=== PATIENT | male | born 1960 | race Caucasian/White ===

== ENCOUNTER 2016-12-09 12:58 | Emergency (ER) | payer MEDICARE, MEDICAID ==
[~2016-12-09] VITALS: Ht 162.6 cm; Wt 55.0 kg
[~2016-12-09 12:58] MED LIST: ATOR80TA PO; BENZ1TAB PO; BUSP30TA PO; HALO10 PO; METO50TA PO; PRIL20CA PO; SERT100 PO
[2016-12-09 13:00] VITALS: BP 154/84; PULSE 123; RESP 14; TEMP 99; O2SAT 95
--- NOTE | 2016-12-09 14:36 | PD ---
HPI Chief Complaint: Skin Problem Time Seen by Provider: 14:36 Travel History International Travel<30 days: No Contact w/Intl Traveler<30days: No Traveled to known affect area: No History of Present Illness HPI 56-year-old male with history of paranoid schizophrenia, hypertension, recent hernia repair by Dr. Gomez at [facility], remote history of necrotizing fasciitis, presents to the emergency department for evaluation. Patient states that he has had rectal pain for the last 2-3 days. This morning he says he noticed a golf ball size painful lesion in front of his rectum. While sitting in triage, it began draining. He has been chilled uncertain of fevers. Decreased appetite. No chest pain or tightness. No recent illnesses. No other symptoms reported this time. PFSH Past Medical History Blood Disorders: No Depression: Yes Heart Rhythm Problems: No Cancer: No Cardiac Catheterization: No Cardiovascular Problems: Yes High Cholesterol: Yes Chest Pain: Yes (ADMITTED 2-3 YRS AGO FOR CP WORK UP) Congestive Heart Failure: No Diabetes: No Diminished Hearing: No Endocrine: No Genitourinary: No Headaches: Yes Hypertension: Yes Immune Disorder: No Musculoskeletal: No Psychiatric: Yes Reproductive: No Respiratory: No Myocardial Infarction: No Schizophrenia: Yes Past Surgical History Coronary Artery Bypass Graft: No Other Surgery: No Social History Alcohol Use: No Tobacco Use: Yes (1 PPD) Substance Use: No Allergies-Medications (Allergen,Severity, Reaction): Coded Allergies: *MDRO Multi-Drug Resistant Organism (Verified Allergy, Unknown, 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 Reported Meds & Prescriptions Reported Meds & Active Scripts Active Ibuprofen 600 Mg Tab 600 Mg PO Q6H PRN Bactrim DS (Sulfamethoxazole-Trimethoprim) 800-160 Mg Tab 1 Tab PO BID Reported Buspirone (Buspirone HCl) 30 Mg Tab 30 Mg PO TID Benztropine (Benztropine Mesylate) 2 Mg Tab 2 Mg PO HS Sertraline (Sertraline HCl) 100 Mg Tab 100 Mg PO DAILY Haloperidol 10 Mg Tab 10 Mg PO HS Omeprazole 20 Mg Tab 20 Mg PO DAILY Metoprolol Tartrate 50 Mg Tab 50 Mg PO DAILY Review of Systems Except as stated in HPI: all other systems reviewed are Neg Physical Exam Narrative GENERAL: Well-nourished male patient, in no acute distress SKIN: Warm and dry. There is a 3 cm x 2 cm opening lateral to the gluteal cleft posterior to the scrotum that is extremely tender. I am able to stick my finger inside of it. It is very tender. HEAD: Atraumatic. Normocephalic. EYES: Pupils equal and round. No scleral icterus. No injection or drainage. ENT: No nasal bleeding or discharge. Mucous membranes pink and moist. NECK: Trachea midline. No JVD. CARDIOVASCULAR: Tachycardic rate and rhythm. No murmur appreciated. RESPIRATORY: No accessory muscle use. Clear to auscultation. Breath sounds equal bilaterally. GASTROINTESTINAL: Abdomen soft, non-tender, nondistended. Abdominal binder in place. Hepatic and splenic margins not palpable. MUSCULOSKELETAL: No obvious deformities. No clubbing. No cyanosis. No edema. NEUROLOGICAL: Awake and alert. No obvious cranial nerve deficits. Motor grossly within normal limits. Normal speech. Data Data Last Documented VS Vital Signs Date Time Temp Pulse Resp B/P Pulse Ox O2 Delivery O2 Flow Rate FiO2 12/09/16 17:18 92 12/09/16 13:00 99.0 14 154/84 95 Room Air Orders Complete Blood Count With Diff (12/09/16 14:31) Comprehensive Metabolic Panel (12/09/16 14:31) Prothrombin Time / Inr (Pt) (12/09/16 14:31) Act Partial Throm Time (Ptt) (12/09/16 14:31) Electrocardiogram (12/09/16 14:31) Lactic Acid Sepsis Protocol (12/09/16 14:31) Ckmb (Isoenzyme) Profile (12/09/16 14:31) Troponin I (12/09/16 14:31) Blood Culture (12/09/16 14:31) Ct Abd/Pel W Iv Contrast(Rout) (12/09/16 17:27) Wound Culture And Gram Stain (12/09/16 17:35) Iv Access Insert/Monitor (12/09/16 17:35) Ketorolac Inj (Toradol Inj) (12/09/16 17:45) Clindamycin Inj (Cleocin Inj) (12/09/16 17:45) Iohexol 350 Inj (Omnipaque 350 Inj) (12/09/16 18:26) Labs Laboratory Tests Test 12/09/16 14:45 White Blood Count 17.2 TH/MM3 Red Blood Count 4.67 MIL/MM3 Hemoglobin 14.4 GM/DL Hematocrit 42.0 % Mean Corpuscular Volume 90.0 FL Mean Corpuscular Hemoglobin 30.7 PG Mean Corpuscular Hemoglobin 34.2 % Concent Red Cell Distribution Width 13.6 % Platelet Count 306 TH/MM3 Mean Platelet Volume 7.2 FL Neutrophils (%) (Auto) 80.1 % Lymphocytes (%) (Auto) 11.0 % Monocytes (%) (Auto) 7.8 % Eosinophils (%) (Auto) 0.5 % Basophils (%) (Auto) 0.6 % Neutrophils # (Auto) 13.8 TH/MM3 Lymphocytes # (Auto) 1.9 TH/MM3 Monocytes # (Auto) 1.3 TH/MM3 Eosinophils # (Auto) 0.1 TH/MM3 Basophils # (Auto) 0.1 TH/MM3 CBC Comment DIFF FINAL Differential Comment Prothrombin Time 10.3 SEC Prothromb Time International 0.9 RATIO Ratio Activated Partial 32.1 SEC Thromboplast Time Sodium Level 133 MEQ/L Potassium Level 3.5 MEQ/L Chloride Level 99 MEQ/L Carbon Dioxide Level 24.3 MEQ/L Anion Gap 10 MEQ/L Blood Urea Nitrogen 7 MG/DL Creatinine 0.86 MG/DL Estimat Glomerular Filtration 92 ML/MIN Rate Random Glucose 100 MG/DL Lactic Acid Level 1.9 mmol/L Calcium Level 9.3 MG/DL Total Bilirubin 0.5 MG/DL Aspartate Amino Transf 11 U/L (AST/SGOT) Alanine Aminotransferase 15 U/L (ALT/SGPT) Alkaline Phosphatase 101 U/L Total Creatine Kinase 60 U/L Troponin I LESS THAN 0.02 NG/ML Total Protein 8.4 GM/DL Albumin 3.9 GM/DL [facility] Medical Decision Making Medical Screen Exam Complete: Yes Emergency Medical Condition: Yes Medical Record Reviewed: Yes Differential Diagnosis Superficial abscess versus perirectal abscess versus necrotizing fasciitis versus fourniers gangrene Narrative Course 56-year-old male presents to emergency department for evaluation. Patient is tachycardic. He does have a draining wound on the left side lateral to the gluteal cleft posterior to the scrotum. Sepsis workup was initiated. I did not assess the patient's abdomen underneath his binder at this is difficult for him to remove and replaced. Once a medical bed because the elbow, patient will be transferred and care assumed by that provider. Scripts Ibuprofen 600 Mg [id number] Mg PO Q6H PRN (Pain/Inflammation) #40 TAB Prov:Doyle Davison MD 12/09/16 Sulfamethoxazole-Trimethoprim (Bactrim DS)800-160 Mg Tab1 Tab PO BID #20 TAB Prov:Doyle Davison MD 12/09/16 Condition: Stable Karen Barroso Dec 09, 2016 14:36
[2016-12-09 15:05] LABS: AUTOMATED NEUTROPHIL # 13.8 TH/MM3 (1.8-7.7); BASOPHIL # 0.1 TH/MM3 (0-0.2); BASOPHIL % 0.6 % (0.0-2.0); EOSINOPHIL # 0.1 TH/MM3 (0-0.4); EOSINOPHIL % 0.5 % (0.0-4.0); HEMO FLAGS DIFF FINAL; LYMPHOCYTE # 1.9 TH/MM3 (1.0-4.8); MEAN CORPUSCULAR HEMOGLOBIN 30.7 PG (27.0-34.0); MEAN CORPUSCULAR HGB CONC 34.2 % (32.0-36.0); MONO % 7.8 % (0.0-8.0); NEUT % 80.1 % (16.0-70.0); PLATELET COUNT 306 TH/MM3 (150-450); RED BLOOD COUNT 4.67 MIL/MM3 (4.50-5.90); RED CELL DISTRIBUTION WIDTH 13.6 % (11.6-17.2); WHITE BLOOD COUNT 17.2 TH/MM3 (4.0-11.0)
[2016-12-09 15:19] LABS: ALT (GPT) 15 U/L (12-78); ANION GAP 10 MEQ/L (5-15); AST (GOT) 11 U/L (15-37); BICARBONATE 24.3 MEQ/L (21.0-32.0); BLOOD UREA NITROGEN 7 MG/DL (7-18); CHLORIDE 99 MEQ/L (98-107); GLOMERULAR FILTRATION RATE 92 ML/MIN (>89); POTASSIUM 3.5 MEQ/L (3.5-5.1); SODIUM (NA) 133 MEQ/L (136-145)
[2016-12-09 15:23] LABS: ALKALINE PHOSPHATASE 101 U/L (45-117); TOTAL BILIRUBIN ADULT 0.5 MG/DL (0.2-1.0)
[2016-12-09 15:24] LABS: APTT (PATIENT) 32.1 SEC (24.3-30.1); INTERNATIONAL NORMALIZED RATIO 0.9 RATIO; PROTHROMBIN TIME - PATIENT 10.3 SEC (9.8-11.6)
[2016-12-09 15:26] LABS: CREATINE KINASE 60 U/L (39-308)
--- NOTE | 2016-12-09 17:35 | PD ---
Physical Exam Date Seen by Provider: Dec 09, 2016 Time Seen by Provider: 17:29 Narrative 56-year-old male previously seen in triage by Karen POWER, with history of necrotizing fasciitis of the perineum in the past presents to the emergency department with draining abscess to the left buttock. Data Data Last Documented VS Vital Signs Date Time Temp Pulse Resp B/P Pulse Ox O2 Delivery O2 Flow Rate FiO2 12/09/16 17:18 92 12/09/16 13:00 99.0 14 154/84 95 Room Air Orders Complete Blood Count With Diff (12/09/16 14:31) Comprehensive Metabolic Panel (12/09/16 14:31) Prothrombin Time / Inr (Pt) (12/09/16 14:31) Act Partial Throm Time (Ptt) (12/09/16 14:31) Urinalysis - C+S If Indicated (12/09/16 14:31) Electrocardiogram (12/09/16 14:31) Lactic Acid Sepsis Protocol (12/09/16 14:31) Ckmb (Isoenzyme) Profile (12/09/16 14:31) Troponin I (12/09/16 14:31) Blood Culture (12/09/16 14:31) Ct Abd/Pel W Iv Contrast(Rout) (12/09/16 17:27) Wound Culture And Gram Stain (12/09/16 17:35) Iv Access Insert/Monitor (12/09/16 17:35) Ketorolac Inj (Toradol Inj) (12/09/16 17:45) Clindamycin Inj (Cleocin Inj) (12/09/16 17:45) Iohexol 350 Inj (Omnipaque 350 Inj) (12/09/16 18:26) Labs Laboratory Tests Test 12/09/16 14:45 White Blood Count 17.2 TH/MM3 Red Blood Count 4.67 MIL/MM3 Hemoglobin 14.4 GM/DL Hematocrit 42.0 % Mean Corpuscular Volume 90.0 FL Mean Corpuscular Hemoglobin 30.7 PG Mean Corpuscular Hemoglobin 34.2 % Concent Red Cell Distribution Width 13.6 % Platelet Count 306 TH/MM3 Mean Platelet Volume 7.2 FL Neutrophils (%) (Auto) 80.1 % Lymphocytes (%) (Auto) 11.0 % Monocytes (%) (Auto) 7.8 % Eosinophils (%) (Auto) 0.5 % Basophils (%) (Auto) 0.6 % Neutrophils # (Auto) 13.8 TH/MM3 Lymphocytes # (Auto) 1.9 TH/MM3 Monocytes # (Auto) 1.3 TH/MM3 Eosinophils # (Auto) 0.1 TH/MM3 Basophils # (Auto) 0.1 TH/MM3 CBC Comment DIFF FINAL Differential Comment Prothrombin Time 10.3 SEC Prothromb Time International 0.9 RATIO Ratio Activated Partial 32.1 SEC Thromboplast Time Sodium Level 133 MEQ/L Potassium Level 3.5 MEQ/L Chloride Level 99 MEQ/L Carbon Dioxide Level 24.3 MEQ/L Anion Gap 10 MEQ/L Blood Urea Nitrogen 7 MG/DL Creatinine 0.86 MG/DL Estimat Glomerular Filtration 92 ML/MIN Rate Random Glucose 100 MG/DL Lactic Acid Level 1.9 mmol/L Calcium Level 9.3 MG/DL Total Bilirubin 0.5 MG/DL Aspartate Amino Transf 11 U/L (AST/SGOT) Alanine Aminotransferase 15 U/L (ALT/SGPT) Alkaline Phosphatase 101 U/L Total Creatine Kinase 60 U/L Troponin I LESS THAN 0.02 NG/ML Total Protein 8.4 GM/DL Albumin 3.9 GM/DL [facility] Medical Record Reviewed: Yes Supervised Visit with KANCHAN: Yes Differential Diagnosis Perirectal abscess. Forniers gangrene. Necrotizing vasculitis. Narrative Course Patient is seen by myself and wound culture is obtained. Abscess of the left buttocks is freely draining. Patient does have elevated leukocytosis at 17.2 with a right shift. CMP shows a sodium 133. Normal lactic acid of 1.9. Negative troponin, and otherwise negative. Coags are normal. Patient discussed with Dr. Davison after exam and he recommends CT of the abdomen and pelvis to rule out deep abscess. Wound culture is sent. Patient is given 900 mg of clindamycin IV. CT of the abdomen is negative for necrotizing fasciitis or drainable abscess per radiologist. Patient will be discharged home on Bactrim DS twice a day 10 days. Patient can take ibuprofen 600 mg 4 times a day when necessary pain. Patient should follow-up with his primary care physician in the next several days to ensure improvement. Patient can return to the emergency department if symptoms worsen as needed. Diagnosis Primary Impression: Left buttock abscess Referrals: Primary Care Physician Patient Instructions: Abscess Incision and Drainage (ED), General Instructions Additional Instruction: Patient will be discharged home on Bactrim DS twice a day 10 days. Patient can take ibuprofen 600 mg 4 times a day when necessary pain. Patient should follow-up with his primary care physician in the next several days to ensure improvement. Patient can return to the emergency department if symptoms worsen as needed. Med/Other Pt SpecificInfo: Prescription(s) given Disposition: DISCHARGE HOME Condition: Stable Sekou Null Dec 09, 2016 17:35
[2016-12-09] MEDS ORDERED: SERT-129 PO (17:43)
[2016-12-09] MEDS ORDERED: HALO10TA PO (17:43)
[2016-12-09] MEDS ORDERED: METO50TA PO (17:43)
[2016-12-09] MEDS ORDERED: OMEP20TA PO (17:43)
[2016-12-09] MEDS ORDERED: BENZ2TAB PO (17:44)
[2016-12-09] MEDS ORDERED: BUSP30TA PO (17:44)
[2016-12-09] MEDS ORDERED: CLINDAMYCIN INJ 900 MG in SODIUM CHLORIDE 0.9% INJ 100 ML IV ONE (17:45)
[2016-12-09] MEDS ORDERED: KETOROLAC TROMETHAMINE 30 MG/ML (IVP) VIAL IVP ONE (17:45)
--- NOTE | 2016-12-09 18:01 | PD ---
Data Data Last Documented VS Vital Signs Date Time Temp Pulse Resp B/P Pulse Ox O2 Delivery O2 Flow Rate FiO2 12/09/16 17:18 92 12/09/16 13:00 99.0 14 154/84 95 Room Air Orders Complete Blood Count With Diff (12/09/16 14:31) Comprehensive Metabolic Panel (12/09/16 14:31) Prothrombin Time / Inr (Pt) (12/09/16 14:31) Act Partial Throm Time (Ptt) (12/09/16 14:31) Electrocardiogram (12/09/16 14:31) Lactic Acid Sepsis Protocol (12/09/16 14:31) Ckmb (Isoenzyme) Profile (12/09/16 14:31) Troponin I (12/09/16 14:31) Blood Culture (12/09/16 14:31) Ct Abd/Pel W Iv Contrast(Rout) (12/09/16 17:27) Wound Culture And Gram Stain (12/09/16 17:35) Iv Access Insert/Monitor (12/09/16 17:35) Ketorolac Inj (Toradol Inj) (12/09/16 17:45) Clindamycin Inj (Cleocin Inj) (12/09/16 17:45) Iohexol 350 Inj (Omnipaque 350 Inj) (12/09/16 18:26) Labs Laboratory Tests Test 12/09/16 14:45 White Blood Count 17.2 TH/MM3 Red Blood Count 4.67 MIL/MM3 Hemoglobin 14.4 GM/DL Hematocrit 42.0 % Mean Corpuscular Volume 90.0 FL Mean Corpuscular Hemoglobin 30.7 PG Mean Corpuscular Hemoglobin 34.2 % Concent Red Cell Distribution Width 13.6 % Platelet Count 306 TH/MM3 Mean Platelet Volume 7.2 FL Neutrophils (%) (Auto) 80.1 % Lymphocytes (%) (Auto) 11.0 % Monocytes (%) (Auto) 7.8 % Eosinophils (%) (Auto) 0.5 % Basophils (%) (Auto) 0.6 % Neutrophils # (Auto) 13.8 TH/MM3 Lymphocytes # (Auto) 1.9 TH/MM3 Monocytes # (Auto) 1.3 TH/MM3 Eosinophils # (Auto) 0.1 TH/MM3 Basophils # (Auto) 0.1 TH/MM3 CBC Comment DIFF FINAL Differential Comment Prothrombin Time 10.3 SEC Prothromb Time International 0.9 RATIO Ratio Activated Partial 32.1 SEC Thromboplast Time Sodium Level 133 MEQ/L Potassium Level 3.5 MEQ/L Chloride Level 99 MEQ/L Carbon Dioxide Level 24.3 MEQ/L Anion Gap 10 MEQ/L Blood Urea Nitrogen 7 MG/DL Creatinine 0.86 MG/DL Estimat Glomerular Filtration 92 ML/MIN Rate Random Glucose 100 MG/DL Lactic Acid Level 1.9 mmol/L Calcium Level 9.3 MG/DL Total Bilirubin 0.5 MG/DL Aspartate Amino Transf 11 U/L (AST/SGOT) Alanine Aminotransferase 15 U/L (ALT/SGPT) Alkaline Phosphatase 101 U/L Total Creatine Kinase 60 U/L Troponin I LESS THAN 0.02 NG/ML Total Protein 8.4 GM/DL Albumin 3.9 GM/DL MDM Supervised Visit with KANCHAN: Yes Narrative Course I, Dr. Davison, have reviewed the advance practice practitioner's documentation and am in agreement, met with the patient face to face, made the diagnosis, and the medical decision making was done by me. *My assessment and Findings: Patient seen and examined by me in addition to Karen POWER in [facility]. I agree with assessment. Fairly unimpressive draining lesion on the left buttocks near the anus. CT reassuring. He appears well and in nad. Stable for discharge. Scripts Ibuprofen 600 Mg [id number] Mg PO Q6H PRN (Pain/Inflammation) #40 TAB Prov:Doyle Davison MD 12/09/16 Sulfamethoxazole-Trimethoprim (Bactrim DS)800-160 Mg Tab1 Tab PO BID #20 TAB Prov:Doyle Davison MD 12/09/16 Condition: Stable Doyle Davison MD Dec 09, 2016 18:01
[2016-12-09] MEDS ORDERED: IOHEXOL 350 MG/ML 10 ML VIAL (for RAD DIAG) IV ONE (18:26)
--- NOTE | 2016-12-09 18:56 | RADRPT ---
EXAM DATE/TIME: 12/09/2016 18:20 [facility] COMPARISON: CT ABDOMEN & PELVIS W CONTRAST, June 17, 2013, 20:15. INDICATIONS: Lump on buttocks with abdominal pain. IV CONTRAST: 92 cc Omnipaque 350 (iohexol) IV ORAL CONTRAST: No oral contrast ingested. RADIATION DOSE: 4.91 CTDIvol (mGy) MEDICAL HISTORY: Cardiovascular disease. Hypertension. Gastroesophageal reflux disease. Schizophrenia. SURGICAL HISTORY: None. ENCOUNTER: Initial ACUITY: 1 day PAIN SCALE: 5/10 LOCATION: Abdomen and pelvis TECHNIQUE: Volumetric scanning of the abdomen and pelvis was performed. Using automated exposure control and ad justment of the mA and/or kV according to patient size, radiation dose was kept as low as reasonably achievable to obtain optimal diagnostic quality images. FINDINGS: There does appear to be increased soft tissue density in the medial inferior left gluteal region. So me of this induration extends around the anterior and left lateral aspect of the anus. A focal fluid collection is not seen. This area measures approximately 4.4 cm in AP dimension, 5 cm in height and 1.4 cm in transverse dimension. The liver demonstrates diffuse decreased attenuation likely related to fatty infiltration. There are small hyperdense areas seen in the lateral aspect in the left lobe of the liver likely representing small cyst or hemangioms. These measures less than 1 cm. The spleen, pancreas, adrenal glands and k idneys appear grossly normal. Atherosclerotic calcifications are seen at the aorta. No aneurysm is present. The bowels are unremarkable. The pelvic structures appear grossly intact. Lung bases are clear. There is degenerative change in the lumbar spine. CONCLUSION: 1. Superficial increased density in the posterior inferior medial left gluteal region likely related to inflammatory change. A drainable fluid collection is not seen. 2. Mild fatty infiltration of the liver with two small suspected hemangiomas or cyst in the left lob e. Hollis Lima MD on December 09, 2016 at 18:40 Board Certified Radiologist. This report was verified electronically.
[2016-12-09] MEDS ORDERED: BACT800T5 PO ×2 (19:02→19:48)
[2016-12-09] MEDS ORDERED: IBUP-232 PO ×2 (19:02→19:48)
--- NOTE | 2016-12-10 15:53 | EKG ---
Date Performed: 12/09/2016 Time Performed: 17:55:13 PTAGE: 56 years EKG: Sinus rhythm Compared to prior tracing no significant change NORMAL ECG PREVIOUS TRACING : 06/18/2013 23.37 DOCTOR: Miguel Leal Interpretating Date/Time 12/10/2016 15:52:41
[2016-12-11] MEDS ORDERED: BACT800T5 PO (11:02)
[2016-12-26] MEDS ORDERED: OMEP20TA PO (15:42)
== END 2016-12-09 19:35 | disposition home or self-care (01) ==
LOC: NEPE 12:58
DX: L02.31 Cutaneous abscess of buttock (principal); B96.20 Unspecified Escherichia coli [E. coli] as the cause of diseases classified elsewhere; R00.0 Tachycardia, unspecified; I10 Essential (primary) hypertension; F17.200 Nicotine dependence, unspecified, uncomplicated; Z79.899 Other long term (current) drug therapy
CPT/HCPCS: 74177; 80053; 82550; 83605; 84484; 85025; 85610; 85730; 86403; 87040; 87070; 87077; 87186; 93005; 96365; 99284; Q9967; 87205